=== PATIENT | female | born 1950 | race Two or more races ===

== ENCOUNTER → 2018-01-14 06:05 | Outpatient (CLI) | payer OTHER | END | disposition home or self-care (01) | LOC: LAB 06:05 | DX: E67.3 Hypervitaminosis D (principal); M81.0 Age-related osteoporosis without current pathological fracture; E04.2 Nontoxic multinodular goiter; E78.01 Familial hypercholesterolemia ==

== ENCOUNTER 2018-01-14 07:35 | Outpatient (CLI) | payer OTHER | END 2018-01-14 07:41 | disposition home or self-care (01) | LOC: SONOGRAMA 07:35 → MAMO-SONO 07:45 | DX: E04.2 Nontoxic multinodular goiter (principal) ==

== ENCOUNTER → 2018-06-04 | Outpatient (CLI) | payer OTHER | END | disposition home or self-care (01) | LOC: NUCLEAR 09:31 | DX: M81.0 Age-related osteoporosis without current pathological fracture (principal) ==

== ENCOUNTER 2018-07-16 06:52 | Outpatient (CLI) | payer OTHER | END 2018-07-16 06:56 | disposition home or self-care (01) | LOC: LAB 06:52 | DX: E67.3 Hypervitaminosis D (principal); E03.8 Other specified hypothyroidism; I10 Essential (primary) hypertension ==

== ENCOUNTER → 2018-12-19 06:20 | Outpatient (CLI) | payer OTHER | END | disposition home or self-care (01) | LOC: LAB 06:20 | DX: D51.3 Other dietary vitamin B12 deficiency anemia (principal); N39.0 Urinary tract infection, site not specified; N95.1 Menopausal and female climacteric states; E03.8 Other specified hypothyroidism; E55.9 Vitamin D deficiency, unspecified; I10 Essential (primary) hypertension ==

== ENCOUNTER 2018-12-31 07:59 | Outpatient (CLI) | payer OTHER | END 2018-12-31 08:03 | disposition home or self-care (01) | LOC: SONOGRAMA 07:59 | DX: E04.2 Nontoxic multinodular goiter (principal) ==

== ENCOUNTER 2019-02-22 07:22 | Outpatient (CLI) | payer OTHER | END 2019-02-22 07:27 | disposition home or self-care (01) | LOC: LAB 07:22 | DX: Z01.811 Encounter for preprocedural respiratory examination (principal); Z01.812 Encounter for preprocedural laboratory examination ==

== ENCOUNTER 2020-02-24 12:32 | Outpatient (CLI) | payer OTHER | END 2020-02-24 14:10 | disposition home or self-care (01) | LOC: SONOGRAMA 12:32 → MAMO-SONO 12:45 → SONOGRAMA 14:10 | PROVIDERS: ATTEND General Practice | DX: E04.2 Nontoxic multinodular goiter (principal) ==

== ENCOUNTER 2020-08-02 14:59 | Outpatient (CLI) | payer OTHER | END 2020-08-02 15:02 | disposition home or self-care (01) | LOC: NUCLEAR 14:59 | PROVIDERS: ATTEND General Practice | DX: M81.0 Age-related osteoporosis without current pathological fracture (principal) ==

== ENCOUNTER 2021-02-25 13:34 | Outpatient (CLI) | payer OTHER | END 2021-02-25 13:44 | disposition home or self-care (01) | LOC: SONOGRAMA 13:34 → MAMO-SONO 13:45 | PROVIDERS: ATTEND General Practice | DX: E04.2 Nontoxic multinodular goiter (principal) ==

== ENCOUNTER 2021-08-10 07:13 | Outpatient (CLI) | payer OTHER | END 2021-08-10 07:23 | disposition home or self-care (01) | LOC: SONOGRAMA 07:13 | PROVIDERS: ATTEND Obstetrics & Gynecology Obstetrics | DX: R10.13 Epigastric pain (principal); N85.00 Endometrial hyperplasia, unspecified ==

== ENCOUNTER 2022-08-07 12:48 | Outpatient (CLI) | payer OTHER | END 2022-08-07 12:56 | disposition home or self-care (01) | LOC: NUCLEAR 12:48 | PROVIDERS: ATTEND General Practice | DX: M81.0 Age-related osteoporosis without current pathological fracture (principal) ==

== ENCOUNTER 2024-03-26 07:29 | Outpatient (CLI) | payer OTHER | END 2024-03-26 07:35 | disposition home or self-care (01) | LOC: MAMO-SONO 07:29 | PROVIDERS: ATTEND Obstetrics & Gynecology Obstetrics | DX: N60.11 Diffuse cystic mastopathy of right breast (principal); N60.12 Diffuse cystic mastopathy of left breast; Z12.31 Encounter for screening mammogram for malignant neoplasm of breast; N85.00 Endometrial hyperplasia, unspecified; R10.13 Epigastric pain ==

== ENCOUNTER 2024-09-15 07:50 | Outpatient (CLI) | payer OTHER | END 2024-09-15 07:53 | disposition home or self-care (01) | LOC: SONOGRAMA 07:50 | PROVIDERS: ATTEND General Practice | DX: E04.2 Nontoxic multinodular goiter (principal) ==

== ENCOUNTER 2024-09-23 12:29 | Outpatient (CLI) | payer OTHER | END 2024-09-23 12:31 | disposition home or self-care (01) | LOC: NUCLEAR 12:29 | PROVIDERS: ATTEND General Practice | DX: M81.0 Age-related osteoporosis without current pathological fracture (principal) ==